=== PATIENT | male | born 1935 | race Caucasian/White ===

== ENCOUNTER 2024-08-13 16:07 | Outpatient (CLI) | payer MEDICARE, SELFPAY ==
[2024-08-13 16:28] LABS: Basophils # 0.1 10^3/uL (0.0-0.1); Basophils % 0.8 %; Eosinophils # 0.2 10^3/uL (0.0-0.8); Eosinophils % 2.3 %; Hematocrit 47.7 % (37-53); Lymphocytes # 2.8 10^3/uL (0.8-4.8); Lymphocytes % 37.9 %; Mean Corpuscular HGB Conc 31.2 g/dL (30-55); Mean Corpuscular Hemoglobin 28.5 pg (27-33); Mean Corpuscular Volume 91.2 fl (82-101); Mean Platelet Volume 10.2 fL (7.4-10.4); Monocytes # 0.7 10^3/uL (0.2-0.9); Neutrophils # 3.73 10^3/uL (1.8-7.7); Neutrophils % 49.9 %; Nucleated Red Blood Cells % 0 %; Platelet Count 179 10^3/cmm (157-399); Red Blood Count 5.23 10^6/uL (3.85-5.65); Red Cell Distribution Width 14.6 % (12.1-15.1); White Blood Count 7.47 10^3/uL (3.29-11.43)
[2024-08-13 16:56] LABS: Alanine Aminotransferase 15 U/L (0-41); Albumin Level 4.3 g/dL (3.5-5.2); Alkaline Phosphatase 80 U/L (40-130); Blood Urea Nitrogen 21 mg/dL (8-23); Calcium 8.4 mg/dL (8.5-10.5); Carbon Dioxide 15 mmol/L (22-29); Chloride 105 mmol/L (98-107); Chol HDL Ratio 7.52 mg/dL (1.0-5.00); Cholesterol 203 mg/dL (0-200); Globulin 2.9 g/dL (1.3-4.6); Glucose 80 mg/dL (65-115); HDL Cholesterol 27 mg/dL (60-100); LDL Cholesterol Calculated 115 mg/dL (50-129); LDL HDL Ratio 4.26 RATIO (0.00-3.22); Osmolality Calculated 284 mOsm/kg (285-295); Sodium 136 mmol/L (136-145); Total Bilirubin 0.3 mg/dL (0.15-1.2); Total Protein 7.2 g/dL (6.6-8.7); Triglycerides 303 mg/dL (0-150)
[2024-08-13 16:57] LABS: Anion Gap 20.8 (5-19); Aspartate Amino Transferase 20 U/L (0-40); Potassium 4.8 mmol/L (3.5-5.1)
== END 2024-08-13 16:08 | disposition home or self-care (01) ==
PROVIDERS: PCP Family Medicine; Visit Provider Family Medicine
DX: I10 Essential (primary) hypertension (principal)
CPT/HCPCS: 80053; 80061; 85025

== ENCOUNTER → 2025-03-31 10:06 | Outpatient (BNVA) | payer MEDICARE, SELFPAY | PROVIDERS: PCP Family Medicine; Visit Provider Nurse Practitioner Family | DX: L57.8 Other skin changes due to chronic exposure to nonionizing radiation (principal); L98.1 Factitial dermatitis | CPT/HCPCS: 11104; 99204 ==

== ENCOUNTER 2025-05-03 14:32 | Outpatient (CLI) | payer MEDICARE, SELFPAY ==
[2025-05-03 14:46] LABS: Hematocrit 41.5 % (37-53); Hemoglobin 12.90 g/dL (11.27-16.99); Mean Corpuscular HGB Conc 31.1 g/dL (30-55); Mean Corpuscular Hemoglobin 29.1 pg (27-33); Mean Corpuscular Volume 93.5 fl (82-101); Nucleated Red Blood Cells % 0 %; Platelet Count 180 10^3/cmm (157-399); Red Blood Count 4.44 10^6/uL (3.85-5.65); White Blood Count 8.01 10^3/uL (3.29-11.43)
[2025-05-03 15:23] LABS: Anion Gap 21.6 (5-19); Blood Urea Nitrogen 18 mg/dL (8-23); Calcium 8.7 mg/dL (8.5-10.5); Carbon Dioxide 17 mmol/L (22-29); Chloride 105 mmol/L (98-107); Ferritin 340 ng/mL (30-400); Glucose 75 mg/dL (65-115); Iron 33 ug/dL (59-158); Osmolality Calculated 289 mOsm/kg (285-295); Potassium 4.6 mmol/L (3.5-5.1); Sodium 139 mmol/L (136-145); Thyroid Stimulating Hormone 2.14 uIU/mL (0.27-4.20); Total Iron Binding Capacity 214 mcg/dl; Unsaturated Iron Binding 181 ug/dL (112-347); Vitamin B12 235 pg/mL (232-1245)
[2025-05-03 15:35] LABS: Hepatitis A Antibody IgM Non-Reactive (Nonreactive); Hepatitis B Surface Antigen Non-Reactive (Nonreactive)
[2025-05-03 22:12] LABS: Free T4 Free Thyroxine 0.93 ng/dL (0.82-1.77)
== END 2025-05-03 14:33 | disposition home or self-care (01) ==
PROVIDERS: PCP Family Medicine; Visit Provider Family Medicine
DX: L29.9 Pruritus, unspecified (principal); I10 Essential (primary) hypertension; R71.0 Precipitous drop in hematocrit; E61.1 Iron deficiency
CPT/HCPCS: 80048; 82607; 82728; 82746; 83540; 83550; 84439; 84443; 85025; 86705; 86706; 86709; 86803; 87340

== ENCOUNTER → 2025-06-06 15:15 | Outpatient (BNVA) | payer MEDICARE, SELFPAY | PROVIDERS: PCP Family Medicine; Visit Provider Nurse Practitioner Family | DX: L27.0 Generalized skin eruption due to drugs and medicaments taken internally (principal) | CPT/HCPCS: 99213 ==

== ENCOUNTER → 2025-07-07 13:33 | Outpatient (BNVA) | payer MEDICARE, SELFPAY | PROVIDERS: PCP Family Medicine; Visit Provider Nurse Practitioner Family | DX: L12.0 Bullous pemphigoid (principal); L30.9 Dermatitis, unspecified | CPT/HCPCS: 11104; 99212 ==

== ENCOUNTER 2025-07-10 10:14 | Outpatient (CLI) | payer MEDICARE, SELFPAY ==
[2025-07-10 10:24] LABS: Hematocrit 36.9 % (37-53); Hemoglobin 11.90 g/dL (11.27-16.99); Mean Corpuscular HGB Conc 32.2 g/dL (30-55); Mean Corpuscular Hemoglobin 28.1 pg (27-33); Mean Corpuscular Volume 87.2 fl (82-101); Nucleated Red Blood Cells % 0 %; Platelet Count 192 10^3/cmm (157-399); Red Blood Count 4.23 10^6/uL (3.85-5.65); White Blood Count 9.34 10^3/uL (3.29-11.43)
== END 2025-07-10 10:15 | disposition home or self-care (01) ==
PROVIDERS: PCP Family Medicine; Visit Provider Family Medicine
DX: I10 Essential (primary) hypertension (principal)
CPT/HCPCS: 85025

== ENCOUNTER → 2025-07-18 10:30 | Outpatient (BNVA) | payer MEDICARE, SELFPAY | PROVIDERS: PCP Family Medicine; Visit Provider Nurse Practitioner Family | DX: L12.0 Bullous pemphigoid (principal); L57.8 Other skin changes due to chronic exposure to nonionizing radiation | CPT/HCPCS: 99214 ==

== ENCOUNTER → 2025-09-02 11:42 | Outpatient (BNVA) | payer MEDICARE, SELFPAY | PROVIDERS: PCP Family Medicine; Visit Provider Dermatology | DX: L12.0 Bullous pemphigoid (principal); L28.1 Prurigo nodularis; F42.4 Excoriation (skin-picking) disorder | CPT/HCPCS: 99214 ==

== ENCOUNTER → 2025-10-03 10:51 | Outpatient (BNVA) | payer MEDICARE, SELFPAY | PROVIDERS: PCP Family Medicine; Visit Provider Dermatology | DX: L12.0 Bullous pemphigoid (principal); L28.1 Prurigo nodularis; F42.4 Excoriation (skin-picking) disorder | CPT/HCPCS: 99214 ==